=== PATIENT | male | born 1980 | race Caucasian/White ===

== ENCOUNTER → 2019-12-16 06:35 | Outpatient (CLI) | payer OTHER, SELFPAY ==
--- NOTE | 2019-12-16 | DI.MRI.S_ITS ---
PROCEDURE: MR ELBOW RT WO CON INDICATIONS: Right elbow and wrist pain TECHNIQUE: Noncontrast coronal proton density fast spin echo and T2 fast spin echo with fat saturation, axial and sagittal T1 spin echo and T2 fast spin echo with fat saturation through the elbow. COMPARISON: None. FINDINGS: Image quality: Excellent. Lateral structures: The lateral ulnar collateral ligament and radial collateral ligament both appear intact. There is a moderate grade intrasubstance tearing of the common extensor tendon at the origin superimposed on moderate tendinosis. Medial structures: The ulnar collateral ligament appears intact. The overlying common flexor tendon appears normal. The ulnar nerve appears normal in size and signal within the cubital tunnel. Anterior structures: The biceps and brachialis tendons both appear intact as they insert onto the proximal radius and ulna, respectively. No bicipitoradial bursal fluid. The median and radial neurovascular bundles appear normal; no focal muscle atrophy to suggest nerve impingement. Posterior structures: The conjoint triceps tendon from the long and lateral heads appears intact. The medial head of the triceps tendon also appears normal, with direct muscle insertion onto the olecranon. No olecranon bursal fluid. Bone and cartilage: No bone marrow contusions or fractures. No osteochondral injuries. IMPRESSION: Moderate grade intrasubstance tearing of the common extensor tendon at origin superimposed on moderate tendinosis. Dictated by: Giuseppe James M.D. on 12/16/2019 at 8:37 Approved by: Giuseppe James M.D. on 12/16/2019 at 8:46
--- NOTE | 2019-12-16 | DI.MRI.S_ITS ---
PROCEDURE: MR WRIST RT WO CON INDICATIONS: Right elbow and wrist pain TECHNIQUE: Noncontrast coronal proton density fast spin echo and T2 fast spin echo with fat saturation; coronal 3-D gradient echo, axial T1 spin echo and T2 fast spin echo with fat saturation, sagittal T1 spin echo through the wrist. COMPARISON: None. FINDINGS: Image quality: Excellent. Bones and cartilage: The carpal bones are normally aligned. No bone marrow contusions or fractures. No evidence for avascular necrosis. Mild degenerative changes are seen at the 1st carpometacarpal joint with marginal spurring. Carpal ligaments: The scapholunate and lunotriquetral ligaments appear intact. In the absence of intra-articular contrast, the extrinsic carpal ligaments are not well identified. Triangular fibrocartilage complex: There is a moderate defect in the central triangle fibrocartilage disc. The dorsal and volar radioulnar ligaments remain intact. Tendons and soft tissues: The carpal tunnel structures appear normal, including the median nerve. The ulnar nerve appears normal within Guyon's canal. There is moderate tendinosis of the extensor carpi ulnaris tendon with a small amount of surrounding fluid in the tendon sheath may indicate tenosynovitis. The remaining extensor tendons are intact. A lobulated ganglion cyst is seen at the ulnar volar aspect of the wrist measuring 14 x 9 x 19 mm. IMPRESSION: 1. Moderately-sized tear of the central triangle fibrocartilage disc. The dorsal and volar radioulnar ligaments are intact. 2. Moderate tendinosis and trace tenosynovitis of the extensor carpi ulnaris tendon. 3. Lobulated ganglion cyst at the volar ulnar aspect of the wrist at the level of the triangle fibrocartilage complex measuring 14 x 9 x 19 mm. Dictated by: Giuseppe James M.D. on 12/16/2019 at 8:46 Approved by: Giuseppe James M.D. on 12/16/2019 at 8:53
== END ==
PROVIDERS: Referring Provider Student in an Organized Health Care Education/Training Program; Visit Provider Student in an Organized Health Care Education/Training Program
DX: M25.531 Pain in right wrist (principal); M25.521 Pain in right elbow; S56.511A Strain of other extensor muscle, fascia and tendon at forearm level, right arm, initial encounter; S63.591A Other specified sprain of right wrist, initial encounter; M67.431 Ganglion, right wrist
CPT/HCPCS: 73221